=== PATIENT | male | born 1990 | race Caucasian/White ===

== ENCOUNTER 2017-05-09 23:06 | Emergency (ER) | payer SELFPAY ==
[2017-05-09] MEDS ORDERED: Ketorolac 30 MG/ML SDV IVPUSH ONE (23:28)
[2017-05-09] MEDS ORDERED: Sodium Chloride 0.9% 1,000 ML IV SCH (23:30)
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
== END 2017-05-10 00:42 | disposition home or self-care (01) ==
LOC: JP.ED 23:06
DX: R42 Dizziness and giddiness (principal); R53.1 Weakness; M79.1 Myalgia; R63.8 Other symptoms and signs concerning food and fluid intake
CPT/HCPCS: 36415; 80048; 85025; 96361; 96374; 99284; J1885; J7040

== ENCOUNTER 2017-09-09 19:04 | Emergency (ER) | payer MEDICAID ==
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
--- NOTE | 2017-09-11 08:57 | CR ---
Wrist Comp Min 3V Rt HISTORY: pain FINDINGS: No acute fracture or dislocation is identified. Bony architecture and joint spaces are preserved. C arpal bone alignment is satisfactory. Soft tissues are unremarkable. IMPRESSION: No acute right wrist abnormality identified.
== END 2017-09-09 20:32 | disposition home or self-care (01) ==
LOC: JP.ED 19:04
DX: M25.531 Pain in right wrist (principal)
CPT/HCPCS: 73110-26-RT; 73110-RT; 99283; 99284

== ENCOUNTER 2017-10-19 15:23 | Emergency (ER) | payer MEDICAID ==
[2017-10-19] MEDS ORDERED: HYDROmorphone 1 MG/ML Syringe IM ONE (18:17)
[2017-10-19] MEDS ORDERED: Ondansetron 4 MG Tab.DIS PO ONE (18:18)
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
== END 2017-10-19 20:25 | disposition home or self-care (01) ==
LOC: JP.ED 15:23
DX: M54.5 Low back pain (principal)
CPT/HCPCS: 96372; 99283; A9270; J1170

== ENCOUNTER 2018-02-25 18:47 | Emergency (ER) | payer MEDICAID ==
[2018-02-25] MEDS ORDERED: Ondansetron 4 MG/2 ML SDV IVPUSH ONE (19:30)
[2018-02-25] MEDS ORDERED: Ketorolac 60 MG/2 ML SDV IM ONE (19:30)
[2018-02-25] MEDS ORDERED: Ondansetron 4 MG Tab.DIS PO ONE (20:07)
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
== END 2018-02-25 21:04 | disposition home or self-care (01) ==
LOC: JP.ED 18:47
DX: J01.10 Acute frontal sinusitis, unspecified (principal); R42 Dizziness and giddiness
CPT/HCPCS: 36415; 80053; 81001; 85025; 87804; 96372; 99284; A9270; J1885

== ENCOUNTER 2020-05-22 09:26 | Emergency (ER) | payer MEDICAID ==
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
== END 2020-05-22 10:19 | disposition home or self-care (01) ==
LOC: JP.ED 09:26
DX: J32.0 Chronic maxillary sinusitis (principal); E03.9 Hypothyroidism, unspecified; Z90.49 Acquired absence of other specified parts of digestive tract; Z79.899 Other long term (current) drug therapy
CPT/HCPCS: 99283

== ENCOUNTER 2020-07-26 05:17 | Emergency (ER) | payer MEDICAID ==
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
--- NOTE | 2020-07-27 09:03 | CR ---
Elbow Min 3V Rt CLINICAL HISTORY: Pain, previous fall FINDINGS: No acute fracture or dislocation is noted. The fat pads are in normal position. Impression: Negative .
== END 2020-07-26 06:29 | disposition home or self-care (01) ==
LOC: JP.ED 05:17
DX: M77.11 Lateral epicondylitis, right elbow (principal); K21.9 Gastro-esophageal reflux disease without esophagitis; E03.9 Hypothyroidism, unspecified; Z77.22 Contact with and (suspected) exposure to environmental tobacco smoke (acute) (chronic); Z79.899 Other long term (current) drug therapy
CPT/HCPCS: 73080-26-RT; 73080-RT; 99283

== ENCOUNTER 2020-08-20 18:44 | Emergency (ER) | payer MEDICAID ==
[2020-08-20] MEDS ORDERED: Proparacaine 0.5% Ophth Soln 15 ML Bottle EYEBOTH ONE (18:46)
[2020-08-20] MEDS ORDERED: Erythromycin Base 0.5% Ophth Oint 3.5 GM Tube EYEBOTH ONE (19:12)
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
== END 2020-08-20 19:51 | disposition home or self-care (01) ==
LOC: JP.ED 18:44
DX: H16.133 Photokeratitis, bilateral (principal); K21.9 Gastro-esophageal reflux disease without esophagitis; E03.9 Hypothyroidism, unspecified; Z79.899 Other long term (current) drug therapy
CPT/HCPCS: 99283; A9270

== ENCOUNTER 2020-09-25 01:26 | Emergency (ER) | payer MEDICAID ==
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
[2020-09-25] MEDS ORDERED: Ketorolac 60 MG/2 ML SDV IM ONE (01:59)
== END 2020-09-25 02:17 | disposition home or self-care (01) ==
LOC: JP.ED 01:26
DX: L03.113 Cellulitis of right upper limb (principal); J45.909 Unspecified asthma, uncomplicated; E03.9 Hypothyroidism, unspecified; K21.9 Gastro-esophageal reflux disease without esophagitis; Z79.899 Other long term (current) drug therapy; Z72.0 Tobacco use
CPT/HCPCS: 96372; 99283; J1885

== ENCOUNTER 2021-05-03 14:00 | Emergency (ER) | payer MEDICAID ==
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
--- NOTE | 2021-05-03 15:33 | CT ---
Chest wo Cont CLINICAL HISTORY: Trauma TECHNIQUE: Transverse scans were obtained from the thoracic inlet to the lung bases without contrast. Auto dosage reduction in intervertebral reconstruction techniques were employed COMPARISONS: None FINDINGS: Lung edwards are clear pulmonary mass or infiltrate. There is no evidence of pneumothorax or pleural effusion. No chest wall thickening is identified. No subcutaneous air or fluid collections are seen. No fractures are seen. There is a tiny amount of air in the sternomanubrial joint. This is most likely degenerative. IMPRESSION: Essentially negative CT chest Specifically no fracture or hematoma identified
== END 2021-05-03 15:46 | disposition left against medical advice (07) ==
LOC: JP.ED 14:00
DX: S20.212A Contusion of left front wall of thorax, initial encounter (principal); J45.909 Unspecified asthma, uncomplicated; K21.9 Gastro-esophageal reflux disease without esophagitis; E03.9 Hypothyroidism, unspecified; Z79.899 Other long term (current) drug therapy; W20.8XXA Other cause of strike by thrown, projected or falling object, initial encounter
CPT/HCPCS: 71250; 71250-26; 99283-25

== ENCOUNTER 2023-06-25 15:26 | Emergency (ER) | payer MEDICAID ==
[2023-06-25] MEDS ORDERED: Sodium Chloride 0.9% 1,000 ML IV STA (16:15)
[2023-06-25] MEDS ORDERED: Ketorolac 30 MG/ML SDV IVPUSH ONE (16:17)
[2023-06-25] MEDS ORDERED: Ondansetron 4 MG/2 ML SDV IM ONE (16:26)
[2023-06-25 16:32] LABS: BASOPHILS PERCENT AUTO 0.2 % (0.1-1.3); EOSINOPHILS ABSOLUTE AUTO 0.08 K/uL (0.00-0.40); EOSINOPHILS PERCENT AUTO 0.9 % (0.0-5.4); HEMATOCRIT 42.4 % (38.4-49.7); HEMOGLOBIN 14.4 g/dL (12.9-16.9); IMMATURE GRAN ABSOLUTE AUTO 0.03 K/uL (0.00-0.23); IMMATURE GRAN PERCENT AUTO 0.3 % (0.0-0.7); LYMPHOCYTES ABSOLUTE AUTO 0.87 K/uL (0.8-3.3); LYMPHOCYTES PERCENT AUTO 9.6 % (11.4-47.7); MEAN CORPUSCULAR HEMOGLOBIN 29.6 pg (31.6-35.5); MEAN CORPUSCULAR VOLUME 87.1 fL (81.4-99.0); MONOCYTES ABSOLUTE AUTO 0.76 K/uL (0.20-0.90); MONOCYTES PERCENT AUTO 8.4 % (3.3-12.6); NEUTROPHILS ABSOLUTE AUTO 7.29 K/uL (1.0-7.6); NEUTROPHILS PERCENT AUTO 80.6 % (40.0-78.1); PLATELET COUNT,PLT 251 K/uL (130-375); RED BLOOD CELL COUNT 4.87 M/uL (4.14-5.76); WHITE BLOOD CELL COUNT,WBC 9.1 K/uL (3.2-11.0)
[2023-06-25 16:34] LABS: BASOPHILS ABSOLUTE AUTO 0.02 K/uL (0.00-0.10)
[2023-06-25 16:36] LABS: CORONAVIRUS COVID-19 NAA NEGATIVE (NEGATIVE); INFLUENZA A NAA POSITIVE (NEGATIVE); INFLUENZA B NAA NEGATIVE (NEGATIVE); RESPIRATORY SYNCYTIAL VIR NAA NEGATIVE (NEGATIVE)
[2023-06-25] MEDS ORDERED: Ketorolac 30 MG/ML SDV IM ONE (16:39)
[2023-06-25 16:54] LABS: A/G RATIO 1.2 (1.2-2.2); ALANINE AMINOTRANSFERASE,ALT 143 U/L (12-78); ALBUMIN 3.8 g/dL (3.4-5.0); ALKALINE PHOSPHATASE 90 U/L (46-116); ASPARTATE AMNIOTRANSFERASE,AST 59 U/L (15-37); BILIRUBIN TOTAL 0.5 mg/dL (0.2-1.0); BLOOD UREA NITROGEN,BUN 9 mg/dL (7-18); CALCIUM 8.7 mg/dL (8.5-10.1); CARBON DIOXIDE,CO2 28 mmol/L (21-32); CHLORIDE,CL 99 mmol/L (100-108); CREATININE 1.3 mg/dL (0.8-1.3); EST CRCL DRUG DOSING (CG) 91.34 mL/min; ESTIMATED GFR 74 mL/min (>60); GLUCOSE RANDOM 117 mg/dL (74-106); POTASSIUM,K 3.9 mmol/L (3.6-5.2); PROTEIN TOTAL,TP 7.1 g/dL (6.4-8.2); SODIUM,NA 136 mmol/L (140-148)
[2023-06-25 16:55] LABS: ANION GAP 12.9 mmol/L (5.0-14.0)
== END 2023-06-25 17:35 | disposition home or self-care (01) ==
LOC: JP.ED 15:26
DX: J10.1 Influenza due to other identified influenza virus with other respiratory manifestations (principal); J06.9 Acute upper respiratory infection, unspecified; K21.9 Gastro-esophageal reflux disease without esophagitis; E03.9 Hypothyroidism, unspecified; Z79.899 Other long term (current) drug therapy; Z87.891 Personal history of nicotine dependence
CPT/HCPCS: 0241U; 36415; 71045; 80053; 85025; 96372; 99285; J1885; J2405

== ENCOUNTER 2023-09-09 19:21 | Emergency (ER) | payer MEDICAID | END 2023-09-09 21:47 | disposition home or self-care (01) | LOC: JP.ED 19:21 | DX: S40.011A Contusion of right shoulder, initial encounter (principal); J45.909 Unspecified asthma, uncomplicated; K21.9 Gastro-esophageal reflux disease without esophagitis; E03.9 Hypothyroidism, unspecified; Z79.899 Other long term (current) drug therapy; Z86.19 Personal history of other infectious and parasitic diseases; X50.1XXA Overexertion from prolonged static or awkward postures, initial encounter | CPT/HCPCS: 73030-26-RT; 73030-RT; 99283 ==

== ENCOUNTER 2024-03-09 18:53 | Emergency (ER) | payer MEDICAID ==
[2024-03-09] MEDS: Ketorolac 15 MG/ML SDV IVPUSH ONE (20:39)
== END 2024-03-09 22:52 | disposition home or self-care (01) ==
LOC: JP.ED 18:53
DX: S43.101A Unspecified dislocation of right acromioclavicular joint, initial encounter (principal); S00.93XA Contusion of unspecified part of head, initial encounter; J45.909 Unspecified asthma, uncomplicated; K21.9 Gastro-esophageal reflux disease without esophagitis; E03.9 Hypothyroidism, unspecified; V89.2XXA Person injured in unspecified motor-vehicle accident, traffic, initial encounter
CPT/HCPCS: 70450; 70486; 72125; 73030; 76377; 96374; 99284; J1885